=== PATIENT | male | born 1980 | race Caucasian/White ===

== ENCOUNTER 2024-02-20 14:44 | Emergency (ER) | payer BC, SELFPAY ==
[2024-02-20 14:48] VITALS: BP 134/94
--- NOTE | 2024-02-20 15:40 | ED.GENMED ---
History of Present Illness
General
Chief Complaint: Headache
Source: patient
Exam Limitations: none
Time Seen by Provider: 02/20/24 15:29
Nursing documentation reviewed up to this point in time: agreed with
History of Present Illness
History of Present Illness:
Patient to ED with complaint ofhead pain. States symptoms first started 2 weeks ago while havig sex with . States at point of climax he developed severe posterior head pain. Severe pain resolved in less than a minuted. Dull pain resolved
over 20 minutes. States eache tme he has had sex since pain has occurred. No n/v. Denies fever/chills, recent illness. No changes in vision. Kevon self to ED for eval. Currently no pain. Works as a general contrator. Has been able to work
without issue
Past History
Past History
ED Past Medical History: None
ED Past Surgical History: None
Social History
Tobacco: Non-smoker
Alcohol: Occasional
Drug: None
Living: with family
Employment: Employed (general warehouse worker.)
Review of Systems
Review of Systems
Allergies reviewed?: Yes
All Other Systems: ROS reviewed and negative except as documented in HPI and ROS
Constitutional: Reports no symptoms
EENT: Reports no symptoms
Respiratory: Reports no symptoms
Cardiac: Reports no symptoms
ABD/GI: Reports no symptoms
: Reports no symptoms
Musculoskeletal: Reports no symptoms
Skin: Reports no symptoms
Neurological: Reports headache (posterior head pain with sex)
Psychiatric: Reports no symptoms
Phy Exam
General Physical Exam
General Presentation: well appearing and no apparent distress
General age: appears stated age
General Skin: warm and dry
General Habitus: normal
General Mental: alert
ENT Exam
ENT Exam: EOMI, TM's normal and neck supple
Eye Exam
Eye Exam: PERRL, EOMI and conjunctiva normal
Cardiovascular Exam
Cardiovascular Exam: regular rate/rhythm
Neurological Exam
Neurological Exam: alert, oriented x3, CN II-XII intact, no motor deficits, no sensory deficits, speech normal and normal gait
NIH Stroke Score
Level of Consciousness: 0 - Alert
LOC questions: 0-Answers both correctly
LOC Commands: 0-Performs both correctly
Best Gaze: 0-Normal
Visual Hsu: 0=Normal, no visual loss
Facial palsy: 0=Normal, symmetrical
Motor - Right Arm: 0=No drift 10 seconds
Motor - Left Arm: 0=No drift 10 seconds
Motor - Right Le-No drift 5 seconds
Motor - Left Le-No drift 5 seconds
Limb Ataxia: 0-Absent
Sensation: 0-Normal
Best Language: 0-No aphasia
Dysarthria: 0-Normal
Extinction and Inattention: 0-No abnormality
Total Score:: 0
Musculoskeletal Exam
Musculoskeletal Exam: full ROM and neuro vasc intact
Skin Exam
Skin Exam: normal color, warm/dry and no rash
Psychiatric Exam
Psychiatric Exam: normal mood/affect
Course
Orders/Labs/Results
Orders:
Orders
02/20/24 15:39
CT Head W/o Iv Contrast Urgent
Comment:
Reason For Exam: pain
02/20/24 16:27
Complete Blood Count/With Diff Urgent
Comprehensive Metabolic Panel Urgent
02/20/24 19:02
Head Angio w/wo Contrast CT [CT Head Angio W/wo Iv Contrast] Urgent
Comment:
Reason For Exam: neurology request
Abnormal Lab Results
02/20/24
16:27
MCH 31.5 H pg
(27.0-31.0)
BUN 21 H mg/dl
(9-20)
Glucose 101 H mg/dl
(70-99)
Calcium 10.6 H mg/dl
(8.4-10.2)
ALT 59 H U/L
(0-50)
Albumin 5.2 H g/dl
(3.5-5.0)
02/20/24 16:27
02/20/24 16:27
Vital Signs
Initial and Last Documented VS:
Initial Vital Signs
Temp Pulse Resp BP Pulse Ox
98.4 F 87 16 134/94 100
02/20/24 14:48 02/20/24 14:48 02/20/24 14:48 02/20/24 14:48 02/20/24 14:48
Last Documented Vital Signs
Temp Pulse Resp BP Pulse Ox
98.4 F 55 18 113/61 99
02/20/24 14:48 02/20/24 19:15 02/20/24 19:15 02/20/24 19:15 02/20/24 19:15
*Radiology
Radiology exam reviewed: radiology read reviewed
*Pulse Oximetry
Patient hypoxic: no
*Critical Care Note
Total Time (30-74mins, 75-104mins- exclusive of procedures): Not Applicable
Update Note
Update Note:
Case discussed with dr. French (neurology). He was able to review CT. No concerning findings on CT. No further intervention required. Continue ibuprofen or tylenol for any future episodes. Patient will follow up with neurology in office. Given
instructions on s/s to return to ED and he is agreeable to plan.
ED Attending Note
-
Portions of this chart may have been created with voice recognition software.� Occasional wrong word or��sound alike� substitutions may have occurred due to the inherent limitations of voice recognition software.
Discharge Plan
Departure
Patient Disposition: Home (Routine Discharge)
Date of Disposition: 02/20/24
Time of Disposition: 20:07
Patient with high blood pressure during this ER visit?: No
Condition: Good
Covid-19: Not Applicable
Discharge Problem:
Headache associated with sexual activity
Instructions: Headache, Adult (DC), Ibuprofen
Referrals:
Sameer French MD [Active] - Next open appointment
NONE,* [Family Provider] -
Activity Restrictions/Additional Instructions:
Return to the emergency department immediately for any changes in/worsening of your symptoms.
Interventions
Interventions:
*Risk Screen - Suicide Last Done: 02/20/24 17:02
*General Assessment Last Done: 02/20/24 14:48
*Neglect/Abuse Screening Last Done: 02/20/24 17:02
ED- Fall Risk Assessment Last Done: 02/20/24 18:47
*ED COVID-19 Vaccine History Last Done: 02/20/24 14:48
*Nursing Disposition Last Done: 02/20/24 20:20
ED- Neurological Assessment Last Done: 02/20/24 17:03
Discharge Date and Time
Discharge Date/Time: 02/20/24 20:21
Print Language: ARABIC
[2024-02-20 16:34] LABS: % Basophils 1.2 % (0-2); % Eosinophils 2.6 % (0-6); % Immature Granulocytes 0.3 % (0-0.5); % Lymphocytes 31.7 % (20.5-51.1); % Monocytes 7.6 % (1.7-9.3); % Neutrophils 56.6 % (42.2-75.2); Absolute Basophils 0.1 10^3/uL (0-0.2); Absolute Eosinophils 0.2 10^3/uL (0-0.7); Absolute Lymphocytes 1.9 10^3/uL (1.2-3.4); Absolute Monocytes 0.5 10^3/uL (0.1-0.6); Absolute Neutrophils 3.4 10^3/uL (1.4-6.5); Hematocrit 42.9 % (39.0-52.0); Hemoglobin 15.1 g/dL (13.0-18.0); Mean Corp Hgb Conc. 35.2 g/dL (33.0-37.0); Mean Corpuscular Hgb 31.5 pg (27.0-31.0); Mean Corpuscular Volume 89.6 fL (80.0-94.0); Mean Platelet Volume 9.7 fL (7.4-10.4); Nucleated Red Blood Cells % 0 % (-); Platelet Count 249 10^3/uL (130-400); Red Blood Cell Count 4.79 10^6/uL (4.70-6.10); Red Cell Dist. Width 12.4 % (11.5-14.5); White Blood Cell Count 6.1 10^3/uL (4.8-10.8)
[2024-02-20 16:54] LABS: ALT (SGPT) 59 U/L (0-50); AST (SGOT) 47 U/L (17-59); Albumin 5.2 g/dl (3.5-5.0); Alkaline Phosphatase 62 U/L (38-126); Blood Urea Nitrogen 21 mg/dl (9-20); Calcium 10.6 mg/dl (8.4-10.2); Carbon Dioxide 28 mmol/L (22-30); Chloride 102 mmol/L (98-107); Glucose 101 mg/dl (70-99); Potassium 4.1 mmol/L (3.5-5.1); Sodium 140 mmol/L (135-145); Total Bilirubin 0.4 mg/dl (0.2-1.3); Total Protein 8.1 g/dl (6.3-8.2); eGFR > 60.00
[2024-02-20 19:10] VITALS: BMI 25.8
[2024-02-20 19:15] VITALS: BP 113/61
== END 2024-02-20 20:21 | disposition home or self-care (01) ==
LOC: EMR 14:44
PROVIDERS: Nurse Practitioner; EMERGENCY PHYSICIAN Emergency Medicine
DX: G44.82 Headache associated with sexual activity (principal)
CPT/HCPCS: 99285; 70450; 70496; 80053; 85025; Q9967

== ENCOUNTER → 2024-09-11 15:47 | Outpatient (REF) | payer BC, SELFPAY | LOC: HWRCS 15:47 | PROVIDERS: ATTENDING PHYSICIAN Internal Medicine Cardiovascular Disease; FAMILY PHYSICIAN Student in an Organized Health Care Education/Training Program | DX: R00.2 Palpitations (principal) | CPT/HCPCS: 93306 ==

== ENCOUNTER → 2024-10-04 13:27 | Outpatient (REF) | payer BC, SELFPAY | LOC: RCS 13:27 | PROVIDERS: ATTENDING PHYSICIAN Internal Medicine Cardiovascular Disease; FAMILY PHYSICIAN Student in an Organized Health Care Education/Training Program | DX: I47.29 Other ventricular tachycardia (principal) | CPT/HCPCS: 93017; 93350 ==